=== PATIENT | female | born 1955 | race Caucasian/White ===

== ENCOUNTER 2018-10-31 05:43 | Day surgery (SDC) | payer MEDICARE ==
[~2018-10-31] VITALS: Ht 236.2 cm; Wt 74.4 kg
[~2018-10-31 05:43] MED LIST: BAYER CHEWABLE81 MG PO; COREG 3.1253.125 MG PO; GLIMEPIRIDE4 MG PO; GLUCOPHAGE1000 MG PO; HYDROCODONE-APA1 TAB PO; LIPITOR40 MG PO; LISINOPRIL-HCTZ1 T13 PO; TRICOR145 MG PO
[2018-10-31 06:18] LABS: BASOPHILS 0.5 % (0-2); EOSINOPHILS 3.9 % (0-7); HEMATOCRIT 39.3 % (36.0-48.0); HEMOGLOBIN 13.2 g/dL (12-16); IMMATURE GRANULOCYTES 0.3 % (0-5); LYMPHOCYTES 25.4 % (15-50); MCH 29.3 pg (26.0-34.0); MCHC 33.6 g/dL (31.0-37.0); MCV 87.3 fL (80.0-100.0); MEAN PLATELET VOLUME 9.3 fL (7.4-10.4); MONOCYTES 9.6 % (2-11); NEUTROPHILS 60.3 % (40-80); RDW 13.6 % (11.5-14.5); WBC 5.9 10x3/uL (4.8-10.8)
[2018-10-31 06:35] LABS: PLATELET COUNT 256 10x3/uL (130-400)
[2018-10-31 07:12] LABS: CALC OSMOLALITY 290 mosm/kg (275-300); CARBON DIOXIDE 28.2 mmol/L (21.0-32.0); CHLORIDE - SERUM 105 mmol/L (98-107); CREATININE - SERUM 0.7 mg/dL (0.6-1.3); GLUCOSE 118 mg/dL (74-106); POTASSIUM - SERUM 3.3 mmol/L (3.5-5.1); SODIUM 144 mmol/L (136-145); UREA NITROGEN 20 mg/dL (7-18); eGFR NON AFRICAN AMERICAN 90 mL/min (90-120)
[2018-10-31 07:24] VITALS: BP 113/67; Ht 236.2 cm; Wt 74.4 kg
[2018-10-31] MEDS ORDERED: NORCO 10-325 TA1 TAB PO (08:37)
--- NOTE | 2018-10-31 10:34 | NUR ---
1015 PT VISITING WITH FAMILY AND LAUGHING. STATES SHE IS DOING GOOD AND READY TO GO HOME. PT HAS DISCHARGE INSTRUCTIONS. IV DC'D IN LEFT HAND. PRESSURE APPLIED. NO BLEEDING AT SITE AND BANDAID APPLIED. NO C/O OF NAUSEA OR VOMITING. DRESSING REMAINS DRY AND INTACT.
--- NOTE | 2018-11-01 14:05 | OP ---
PATIENT NAME: PRAKASH SAAB MEDICAL RECORD: [id number] :57 LOCATION:D.OPS ADMISSION DATE: SURGEON: CARLOS CYR MD DATE OF OPERATION: 10/31/2018 PREOPERATIVE DIAGNOSES: 1. Right flank lipoma. 2. Hypercholesterolemia. 3. Diabetes mellitus. 4. Hypertension. POSTOPERATIVE DIAGNOSES: 1. Right flank lipoma. 2. Hypercholesterolemia. 3. Diabetes mellitus. 4. Hypertension. PROCEDURE: Excision of 6-cm right flank subfascial lipoma. SURGEON: Carlos Cyr MD REPORT OF PROCEDURE: The patient's right flank was prepped and draped in sterile fashion. An oblique incision was made overlying the mass. Electrocautery was used to dissect through the subcutaneous tissues and the fascia until we entered the space around the patient's flank muscles. We these muscles and immediately encountered a large lipoma. This lipoma was excised from the surrounding tissues, mainly with blunt dissection. There were some adherent areas to the surrounding muscles, which were taken down with electrocautery and once the mass was completely excised, it was measured out to approximately 6 cm. The area was inspected and any bleeding that was found was treated with electrocautery or with free ties. We irrigated out the wound with normal saline. There was no evidence that we entered the peritoneal cavity at any point. The fascia and muscular tissue were reapproximated using running 0 Vicryl. The subcutaneous tissues were then reapproximated with interrupted 3-0 Vicryl. The skin was closed with running subcutaneous 5-0 Monocryl and then infused with 10 mL of 0.25% Marcaine with epinephrine. The wound was then dressed appropriately. COMPLICATIONS: None. CONDITION: Stable. ANESTHESIA: General endotracheal and local. BLOOD LOSS: Minimal. TRANSINT:[id number] Voice Confirmation ID: [id number] DOCUMENT ID: [id number] OPERATIVE REPORT [id number] SAABPRAKASH Henriquez CARLOS PINO MD at 1405 CC: JULIANA CONTRERAS MD [id number] DICTATION DATE: 10/31/18 0841 LITERACY TUTOR: 10/31/18 0946 [facility] 10/31/18 [place] [address]
== END 2018-10-31 10:25 | disposition home or self-care (01) ==
LOC: D.OPS 05:43 → D.PAN 08:00 → D.OPS 08:00
PROVIDERS: Surgery
DX: D17.1 Benign lipomatous neoplasm of skin and subcutaneous tissue of trunk (principal); I10 Essential (primary) hypertension; E11.9 Type 2 diabetes mellitus without complications; E78.5 Hyperlipidemia, unspecified

== ENCOUNTER → 2019-03-14 20:14 | Outpatient (CLI) | payer MEDICARE ==
[2018-10-31 07:24] VITALS: BMI 13.3
[~2019-03-14 20:14] MED LIST changes: +NORCO 10-325 TA1 TAB PO
== END | disposition home or self-care (01) ==
LOC: D.MAMMO 03-06 16:00
PROVIDERS: ATTEND General Practice
DX: Z12.31 Encounter for screening mammogram for malignant neoplasm of breast (principal)

== ENCOUNTER 2019-04-22 10:00 | Outpatient (CLI) | payer MEDICARE ==
[2018-10-31 07:24] VITALS: BMI 13.3
== END 2019-04-22 11:00 | disposition home or self-care (01) ==
LOC: D.MAMMO 10:00
PROVIDERS: ATTEND General Practice
DX: R92.2 Inconclusive mammogram (principal)